=== PATIENT | female | born 2000 | race Caucasian/White ===

== ENCOUNTER 2021-11-05 04:01 | Emergency (ER) | payer MEDICAID ==
[~2021-11-05] VITALS: Ht 165.1 cm; Wt 68.0 kg
--- NOTE | 2021-11-05 04:30 | NUR ---
DR. AGGIE Green AT BEDSIDE, MSE IN PROGRESS.
[2021-11-05] MEDS ORDERED: CEPH500T PO (04:38)
[2021-11-05] MEDS ORDERED: SULF1TAB48 PO (04:38)
[2021-11-05] MEDS ORDERED: LIDO120C7 TP (04:38)
[2021-11-05] MEDS ORDERED: SULFAMETH/TRIMETH 800/160 MG TABLET PO ONE (04:45)
[2021-11-05] MEDS ORDERED: CEphaleXIN 500 MG CAPSULE PO ONE (04:45)
--- NOTE | 2021-11-05 04:46 | NUR ---
Patient discharged to home in stable condition. Written and verbal after care instructions given. Patient verbalizes understanding of instructions. Stressed follow up or return to ER for worsening s/s. Steady gait.
[2021-11-05 04:47] VITALS: BP 122/76
[2021-11-05] MEDS ORDERED: CEphaleXIN 500 MG CAPSULE ONE (04:47)
[2021-11-05] MEDS ORDERED: SULFAMETH/TRIMETH 800/160 MG TABLET ONE (04:47)
== END 2021-11-05 05:03 | disposition home or self-care (01) ==
LOC: ER 04:05
DX: L97.129 Non-pressure chronic ulcer of left thigh with unspecified severity (principal); L97.119 Non-pressure chronic ulcer of right thigh with unspecified severity; L08.89 Other specified local infections of the skin and subcutaneous tissue; B95.62 Methicillin resistant Staphylococcus aureus infection as the cause of diseases classified elsewhere; G89.29 Other chronic pain; M54.9 Dorsalgia, unspecified; F17.210 Nicotine dependence, cigarettes, uncomplicated; Z59.00 Homelessness unspecified; F15.90 Other stimulant use, unspecified, uncomplicated
CPT/HCPCS: A4663